=== PATIENT | female | born 1950 | race Caucasian/White ===

== ENCOUNTER → 2024-05-20 | Day surgery (SDC) | payer OTHER ==
[~2024-05-20] MED LIST: ALENDRONATE SOD70 MG PO; ALTOPREV40 MG PO; AMLODIPINE BESYL5 MG PO; ASPIRIN81 MG PO; BUSPIRONE HCL10 MG PO; FENTANYL CITRATE/PF 100MCG/2 ML INJ ONE; HYOSCYAMINE SULFATE 0.5 MG/ML INJ ONE; KEYTRUDA100 MG/4 M; MAGNESIUM OXID400 MG PO; METOPROLOL TAR100 MG PO; PROPOFOL IV EMULSION 100 ML IV ONE; TRAZODONE HCL100 MG PO; VENLAFAXINE HCL75 M1 PO; VITAMIN D3 MA125 MCG; [UNRECOGNIZED DRUG - OTHER]
[2024-05-20] MEDS: LACTATED RINGER'S 1,000 ML ONE (13:12)
[2024-05-20 16:16] VITALS: TEMP 97.1
[2024-05-20 17:00] VITALS: BP 124/64; PULSE 96; RESP 16; O2SAT 99
== END | disposition home or self-care (01) ==
LOC: OR 12:33
PROVIDERS: ATTEND Internal Medicine Gastroenterology
DX: Z12.11 Encounter for screening for malignant neoplasm of colon (principal); K29.50 Unspecified chronic gastritis without bleeding; K31.89 Other diseases of stomach and duodenum; Z71.3 Dietary counseling and surveillance; K44.9 Diaphragmatic hernia without obstruction or gangrene; K26.9 Duodenal ulcer, unspecified as acute or chronic, without hemorrhage or perforation; K31.5 Obstruction of duodenum; K56.609 Unspecified intestinal obstruction, unspecified as to partial versus complete obstruction; K57.30 Diverticulosis of large intestine without perforation or abscess without bleeding; Z85.09 Personal history of malignant neoplasm of other digestive organs; I10 Essential (primary) hypertension; E78.5 Hyperlipidemia, unspecified; F41.9 Anxiety disorder, unspecified; F32.A Depression, unspecified; Z88.6 Allergy status to analgesic agent; Z79.82 Long term (current) use of aspirin; Z79.899 Other long term (current) drug therapy; Z68.29 Body mass index [BMI] 29.0-29.9, adult; Z92.21 Personal history of antineoplastic chemotherapy
CPT/HCPCS: 43239; G0104; 45378; 88305; 88342; J1980; J2470

== ENCOUNTER → 2024-06-01 | Outpatient (REF) | payer OTHER ==
[~2024-06-01] MED LIST changes: -FENTANYL CITRATE/PF 100MCG/2 ML INJ ONE; -HYOSCYAMINE SULFATE 0.5 MG/ML INJ ONE; -PROPOFOL IV EMULSION 100 ML IV ONE
== END ==
LOC: DX 13:45
PROVIDERS: ATTEND Internal Medicine Gastroenterology
DX: Z12.11 Encounter for screening for malignant neoplasm of colon (principal); R10.11 Right upper quadrant pain
CPT/HCPCS: 74280